=== PATIENT | male | born 1940 | race Caucasian/White ===

== ENCOUNTER → 2018-05-22 | Outpatient (CLI) | payer OTHER, MEDICARE | END | disposition home or self-care (01) | LOC: US 11:00 | DX: I71.4 Abdominal aortic aneurysm, without rupture (principal); I74.5 Embolism and thrombosis of iliac artery; I10 Essential (primary) hypertension; Z72.0 Tobacco use ==

== ENCOUNTER → 2020-10-13 | Outpatient (CLI) | payer OTHER | END | disposition home or self-care (01) | LOC: MRI 15:00 | PROVIDERS: ATTEND Internal Medicine Medical Oncology | DX: I63.89 Other cerebral infarction (principal); G93.89 Other specified disorders of brain; C34.90 Malignant neoplasm of unspecified part of unspecified bronchus or lung; E86.9 Volume depletion, unspecified; J34.89 Other specified disorders of nose and nasal sinuses ==